=== PATIENT | female | born 2000 | race African-American/Black ===

== ENCOUNTER 2021-08-23 01:20 | Emergency (ER) | payer MEDICAID, OTHER ==
[~2021-08-23] VITALS: Ht 157.5 cm; Wt 65.8 kg
[2021-08-23 03:04] VITALS: BP 121/72
== END 2021-08-23 04:42 | disposition home or self-care (01) ==
LOC: ER 01:22
DX: S96.812A Strain of other specified muscles and tendons at ankle and foot level, left foot, initial encounter (principal); J45.909 Unspecified asthma, uncomplicated; E78.00 Pure hypercholesterolemia, unspecified; W10.8XXA Fall (on) (from) other stairs and steps, initial encounter; Y93.89 Activity, other specified; Y92.89 Other specified places as the place of occurrence of the external cause; Y99.8 Other external cause status
CPT/HCPCS: 73660